=== PATIENT | female | born 1990 | race Caucasian/White ===

== ENCOUNTER → 2020-05-05 | Outpatient (CLI) | payer OTHER | LOC: MC.RAD 12:48 | DX: N63.22 Unspecified lump in the left breast, upper inner quadrant (principal) ==

== ENCOUNTER 2022-01-19 05:25 | Inpatient (IN) | payer OTHER ==
[~2022-01-19] VITALS: Ht 167.6 cm; Wt 109.1 kg
[2022-01-19] VITALS (21 sets, daily range): BP systolic 101–166; BP diastolic 60–105; PULSE 61–74; TEMP 97.6–98.2
--- NOTE | 2022-01-19 06:06 | NUR ---
AMBULATES TO ROOM INDEPENDENTLY, TOCO AND EFM APPLIED. CONSENTS OBTAINED WITH USE OF INGREDIENT SPECIALIST (MICHA CODE [id number]). 0543 18GA LT HAND, 1 ATTEMPT, BLOOD RETURN, TOLERATES WELL. LABS OBTAINED.
[2022-01-19 06:08] LABS: BASO % 0.4 % (0.0-2.0); EOS # 0.1 K/mm3 (0.0-0.7); EOS % 1.7 % (0.0-4.0); GRAN # 4.9 K/mm3 (1.4-6.5); GRAN % 65.1 % (42.2-75.2); HEMOGLOBIN 12.4 g/dl (12.5-16.0); LYMPH # 1.8 K/mm3 (1.2-3.4); LYMPH % 24.3 % (20.0-51.0); MEAN CELL VOLUME 88 fl (80.0-100.0); MEAN CORPUSCULAR HEMOGLOBIN 30 pg (27-31); MEAN CORPUSCULAR HGB CONC 34 g/dl (33.0-37.0); MEAN PLATELET VOLUME 11.8 fl (7.4-10.4); MONO # 0.6 K/mm3 (0.1-0.6); MONO % 7.4 % (1.7-9.3); PLATELET COUNT 184 K/mm3 (130-400); RED BLOOD COUNT 4.11 M/mm3 (4.10-5.30); REDCELL DISTRIBUTION WIDTH-CV 13.4 % (11.5-14.5)
[2022-01-19 06:09] LABS: HEMATOCRIT 36.3 % (37.0-47.0)
--- NOTE | 2022-01-19 10:10 | NUR ---
0630 - FHT'S 115, MOD VARIABILITY, 15X15 ACCELS, MILD IRREG CTXS Q5-8 MINUTES, PT RESTS IN BED, OB INTAKE QUESTIONS AND ASSESSMENT DONE 0700 - FHT'S 120 MOD VARIABILITY, 15X15 ACCELS WITH MILD IRREG CTXS, IV LR INFUSING TO LT HAND WITHOUT DIFFICULTY. SURGICAL ATTIRE GIVEN TO FOB, SURGICAL HAT ON NONSKID SOCKS ON PT, SURGICAL SITE CLEANSED, NO SHAVE NEEDED 0715 - EFM REMOVED, FHT'S 125 WITH MOD VARIABILITY, 15X15 ACCELS. PT AMBULATES TO OR WITH RN AND
--- NOTE | 2022-01-19 11:02 | NUR ---
REPEAT SECTION UNDER SERVICES OF DR AMARO AND DR FRY ASSIST, 0749 VACUUM APPLIED TO HEAD, WITH POP OFF X1, VACUUM REAPPLIED BY DR AMARO, 0750 DELIVERY OF VIABLE MALE WITH NUCHAL CORD X1. CIRILO USED BY DR AMARO DURING CLOSURE OF INCISION
--- NOTE | 2022-01-19 13:00 | NUR ---
1300 - THIS RN ASSUMING CARE. ROUNDS COMPLETED. CARE ONGOING.
--- NOTE | 2022-01-19 17:08 | NUR ---
FROM PACU TO ROOM 213 PER BED. AWAKE AND ALERT WITH BABY IN ARMS, UNABLE TO MOVE LOWER EXTREMETIES, PADS CHANGED AND RUDY CARE PROVIDED. ABD BINDER IN PLACE. SCD'S ON BILAT. PT DENIES PAIN OR NAUSEA AT THIS TIME. AND BABY AT BEDSIDE
--- NOTE | 2022-01-19 17:30 | NUR ---
1730 - KARISSA D/C. PATIENT UP TO BATHROOM. PERICARE PERFORMED. LINENS CHANGED. GOWN CHANGED. PATIENT AMBULATES IN ROOM. CARE ONGOING.
--- NOTE | 2022-01-19 18:05 | NUR ---
RESTS IN BED TALKING ON PHONE, BEGINNING TO FEEL DISCOMFORT WITH FUNDAL CHECKS, LOWER ABD DSG WITH SCANT AMOUNT OF DRAINAGE SHADOWING TO LOWER PART OF DRESSING. PT DENIES ANY NEEDS AT THIS TIME. AND BABY AT BEDSIDE
--- NOTE | 2022-01-19 18:09 | NUR ---
RESTS IN BED, HAS TAKEN SIPS OF ICE WATER WITHOUT NAUSEA, HAS ORDERED FOOD FOR HER. LOWER ABD DSG DRAINAGE REMAINS UNCHANGED. PT DENIES ANY NEEDS AT THIS TIME
--- NOTE | 2022-01-19 21:30 | NUR ---
224 - NURSE EDITED PAIN LEVEL FOR PAIN ASSESSMENT OF 2129 FROM 3 TO 5. NURSE KEYED IN 3 INSTEAD OF 5. CORRECTION MADE.
[2022-01-20 07:07] VITALS: BP 115/67; PULSE 61; TEMP 98
[2022-01-20] MEDS ORDERED: PERCOCET 325 MG1 TA2 PO (08:54)
[2022-01-20] MEDS ORDERED: IBU800 M1 PO (08:54)
--- NOTE | 2022-01-20 09:48 | NUR ---
Initial visit attempt; Mom indisposed, Community Artist left card offering congratulations and God's blessings for the of their son and information regarding the availability of spiritual care at our hospital.
--- NOTE | 2022-01-20 11:00 | NUR ---
REPORT GIVEN TO SHANEKA SUBRAMANIAN. MORIS TO ASSUME CARE OF PATIENT.
[2022-01-20 11:35] VITALS: BP 120/71; PULSE 67; TEMP 98
[2022-01-20 15:35] VITALS: BP 114/64; PULSE 65; TEMP 96.8
--- NOTE | 2022-01-20 19:00 | NUR ---
1900 - USE OF CONTINUING EDUCATION DIRECTOR UTILIZED TO TRANSLATE BABY NEEDING A AKHIL TEST WELL A BILIRUBIN RETEST AT 0500 ON 01/21/22. CONTINUING EDUCATION DIRECTOR UTILIZED WAS
[2022-01-20 19:45] VITALS: BP 127/79; PULSE 71; TEMP 98.7
[2022-01-21 07:57] VITALS: BP 106/66; PULSE 64; TEMP 98.7
--- NOTE | 2022-01-21 15:08 | NUR ---
DISCHARGE INSTRUCTIONS GIVEN TO PT. PT TO FOLLOW UP AT CLINIC ON 02/02/22 VIA TELEHEALTH. PT VERBALIZED UNDERSTANDING. PT LEFT UNIT IN STABLE CONDITION WITH NO COMPLAINTS. PT AMBULATED OFF THE UNIT WITH SPOUSE AND INFANT IN CAR SEAT.
== END 2022-01-21 15:08 | disposition home or self-care (01) | DRG 788 ==
LOC: OB 05:25
PROVIDERS: ADMIT Student in an Organized Health Care Education/Training Program
PROC: 10D00Z1 Extraction of Products of Conception, Low, Open Approach (ICD-10-PCS; principal; 2022-01-19)
DX: O34.211 Maternal care for low transverse scar from previous cesarean delivery (principal); O99.214 Obesity complicating childbirth; E66.9 Obesity, unspecified; O99.02 Anemia complicating childbirth; D64.9 Anemia, unspecified; K21.9 Gastro-esophageal reflux disease without esophagitis; O69.81X0 Labor and delivery complicated by cord around neck, without compression, not applicable or unspecified; O99.62 Diseases of the digestive system complicating childbirth; Z85.43 Personal history of malignant neoplasm of ovary; Z90.49 Acquired absence of other specified parts of digestive tract; Z91.048 Other nonmedicinal substance allergy status; Z3A.39 39 weeks gestation of pregnancy; Z37.0 Single live birth
CPT/HCPCS: J0171; J0690; J1885; J2370; J2405; J2590; J7120

== ENCOUNTER → 2023-07-04 | Outpatient (CLI) | payer OTHER ==
[~2023-07-04] MED LIST: IBU800 M1 PO; PERCOCET 325 MG1 TA2 PO
== END ==
LOC: COL.RAD 10:00
DX: E21.3 Hyperparathyroidism, unspecified (principal)
CPT/HCPCS: A9500-JZ

== ENCOUNTER → 2023-11-03 | Outpatient (CLI) | payer OTHER ==
[~2023-11-03] MED LIST changes: +CLEOCIN HCL300 MG PO
== END ==
LOC: COL.RAD 10:25
DX: D35.1 Benign neoplasm of parathyroid gland (principal)
CPT/HCPCS: A9500-JZ